=== PATIENT | male | born 1975 | race Caucasian/White ===

== ENCOUNTER → 2022-04-25 | Outpatient (REF) | payer BC ==
[2022-04-25 13:07] LABS: URIC ACID 7.3 MG/DL (3.7-9.2)
[2022-04-25 13:10] LABS: CHOLESTEROL RISK RATIO 4.86 (<5); HDL CHOLESTEROL 40.3 MG/DL (>40); LDL CHOLESTEROL 117.5 MG/DL (<100)
== END ==
LOC: M LAB REF 12:20
PROVIDERS: ATTEND Nurse Practitioner Family
DX: M10.9 Gout, unspecified (principal); R79.89 Other specified abnormal findings of blood chemistry; R94.7 Abnormal results of other endocrine function studies

== ENCOUNTER → 2022-11-04 | Outpatient (CLI) | payer BC | LOC: M RAD 15:40 | PROVIDERS: ATTEND Family Medicine Addiction Medicine | DX: R07.9 Chest pain, unspecified (principal) ==

== ENCOUNTER → 2023-03-10 | Outpatient (REF) | payer BC ==
[2023-03-12 15:07] LABS: PSA TOTAL 0.8 ng/mL (0.0-4.0)
== END ==
LOC: M LAB REF 12:34
PROVIDERS: ATTEND Family Medicine Addiction Medicine
DX: R39.12 Poor urinary stream (principal)

== ENCOUNTER 2023-05-26 10:54 | Day surgery (SDC) | payer BC ==
[~2023-05-26] VITALS: Ht 172.7 cm; Wt 115.2 kg
[~2023-05-26 10:54] MED LIST: CIAL10TA PO; NS 1,000 ML IV ONE
[2023-05-26] MEDS ORDERED: propofoL 200 MG/20 ML VIAL As Ordered ONE (11:40)
[2023-05-26] MEDS ORDERED: LIDOCAINE 2% 100MG/5ML SDV (FOR ANES.) As Ordered ONE (11:40)
[2023-05-26 13:11] VITALS: TEMP 97.4
[2023-05-26 13:30] VITALS: BP 140/98; O2SAT 100
== END 2023-05-26 13:35 | disposition home or self-care (01) ==
LOC: M OPP 10:54
PROVIDERS: ATTEND Surgery
DX: Z86.010 Personal history of colon polyps (principal); D12.0 Benign neoplasm of cecum; K57.30 Diverticulosis of large intestine without perforation or abscess without bleeding; K64.4 Residual hemorrhoidal skin tags; K64.8 Other hemorrhoids; Z79.899 Other long term (current) drug therapy

== ENCOUNTER → 2023-09-07 | Outpatient (REF) | payer BC ==
[~2023-09-07] MED LIST changes: -NS 1,000 ML IV ONE
[2023-09-07 14:34] LABS: ALKALINE PHOSPHATASE 78 U/L (46-116); ALT/SGPT 28 U/L (7.0-40); AST/SGOT 19 U/L (<34); BILIRUBIN,TOTAL 0.6 MG/DL (0.3-1.2); BLOOD UREA NITROGEN 23 MG/DL (9-23); CALCIUM LEVEL 9.4 MG/DL (8.5-10.1); CARBON DIOXIDE LEVEL 26 MMOL/L (20-31); CHLORIDE LEVEL 103 MMOL/L (98-107); CHOLESTEROL LEVEL 229 MG/DL (<200); CHOLESTEROL RISK RATIO 7.31 (<5); CREATININE FOR GFR 1.14 MG/DL (0.70-1.30); GLOMERULAR FILTRATION RATE > 60.0 (>60); GLUCOSE, FASTING 78 MG/DL (60-100); HDL CHOLESTEROL 31.3 MG/DL (>40); LDL CHOLESTEROL 161.5 MG/DL (<100); NON-HDL-C 197.7 MG/DL; POTASSIUM SERUM 4.9 MMOL/L (3.5-5.1); SODIUM LEVEL 138 MMOL/L (136-145); THYROID STIMULATING HORMONE 2.247 uIU/ML (0.55-4.78); TOTAL PROTEIN 6.9 G/DL (5.7-8.2); TRIGLYCERIDES LEVEL 181 MG/DL (<150)
== END ==
LOC: M LAB REF 11:55
PROVIDERS: ATTEND Family Medicine Addiction Medicine
DX: I10 Essential (primary) hypertension (principal)

== ENCOUNTER 2023-11-10 19:07 | Inpatient (IN) | payer BC ==
[~2023-11-10] VITALS: Ht 175.3 cm; Wt 116.7 kg
[2023-11-10] MEDS ORDERED: AMLO1TAB24 PO (19:59)
[2023-11-10 20:32] LABS: BASO # 0.1 10^3/uL (0.0-0.2); BASO % 0.4 % (0.0-1.0); EOS % 0.2 % (0.0-3.0); HEMOGLOBIN 19.5 g/dl (13.5-17.5); LYMPH % 7.2 % (24.0-44.0); MEAN CORPUSCULAR HEMOGLOBIN 29.5 pg (27.0-33.0); MEAN CORPUSCULAR HGB CONC 35.5 g/dl (32.0-36.5); MEAN CORPUSCULAR VOLUME 83.3 fl (80.0-96.0); NEUTROPHILS # 11.7 10^3/uL (1.5-8.5); NEUTROPHILS % 84.8 % (36.0-66.0); PLATELET COUNT, AUTOMATED 246 10^3/uL (150-450); WHITE BLOOD COUNT 13.8 10^3/uL (4.0-10.0)
[2023-11-10 21:07] LABS: LIPASE 24 U/L (12-53)
[2023-11-10 21:09] LABS: ALBUMIN 4.3 G/DL (3.2-5.2); ALKALINE PHOSPHATASE 74 U/L (46-116); ALT/SGPT 24 U/L (7.0-40); AST/SGOT 15 U/L (<34); BILIRUBIN,DIRECT 0.3 MG/DL (<0.4); BILIRUBIN,TOTAL 1.3 MG/DL (0.3-1.2); BLOOD UREA NITROGEN 23 MG/DL (9-23); CALCIUM LEVEL 9.7 MG/DL (8.5-10.1); CARBON DIOXIDE LEVEL 25 MMOL/L (20-31); CHLORIDE LEVEL 102 MMOL/L (98-107); CREATININE FOR GFR 1.23 MG/DL (0.70-1.30); GLOMERULAR FILTRATION RATE > 60.0 (>60); GLUCOSE, FASTING 140 MG/DL (60-100); SODIUM LEVEL 138 MMOL/L (136-145); TOTAL PROTEIN 7.7 G/DL (5.7-8.2)
[2023-11-11] MEDS: ONDANSETRON 4MG 2ML VIAL IV ONE (01:19)
[2023-11-11] MEDS: KETOROLAC 30 MG/ML 1ML VIAL IV ONE (01:20)
[2023-11-11] MEDS: NS 1,000 ML IV ONE ×2 (01:22→03:15)
[2023-11-11] MEDS ORDERED: ISOVUE-370 76% 100ML VIAL As Ordered ONE (01:26)
[2023-11-11] MEDS: KCL 20MEQ in NS 1000ML 1,000 ML IV SCH (04:16)
[2023-11-11] MEDS ORDERED: CLOB0.057 TOP (05:44)
[2023-11-11] MEDS ORDERED: ALBU8.5H INH (05:44)
[2023-11-11] MEDS ORDERED: TADA10TA PO (05:44)
[2023-11-11] MEDS ORDERED: HOME MED LIST COMPLETE! XX SCH (05:45)
[2023-11-11 06:06] VITALS: BP 148/92
[2023-11-11 07:31] VITALS: BP 146/80; TEMP 98.8
[2023-11-11 09:32] LABS: HEMATOCRIT 49.4 % (42.0-52.0); MEAN CORPUSCULAR HEMOGLOBIN 30.1 pg (27.0-33.0); MEAN CORPUSCULAR HGB CONC 34.6 g/dl (32.0-36.5); PLATELET COUNT, AUTOMATED 227 10^3/uL (150-450); RED BLOOD COUNT 5.68 10^6/uL (4.30-6.10); WHITE BLOOD COUNT 10.1 10^3/uL (4.0-10.0)
[2023-11-11 09:33] LABS: HEMOGLOBIN 17.1 g/dl (13.5-17.5)
[2023-11-11] MEDS: PANTOPRAZOLE 40MG VIAL IV SCH (10:01)
[2023-11-11] MEDS: ENOXAPARIN 40MG/0.4ML SYRINGE (J1650 PER 10MG) SC SCH (10:02)
[2023-11-11 11:48] VITALS: BP 140/80; TEMP 98.2; O2SAT 93
[2023-11-11] MEDS: CHLORASEPTIC SPRAY MT PRN (11:49)
[2023-11-11] MEDS: KETOROLAC 30 MG/ML 1ML VIAL IV PRN (12:27)
[2023-11-11 15:55] VITALS: BP 142/88; TEMP 98.2; O2SAT 92
[2023-11-11] MEDS: CEPACOL LOZENGE PO PRN (16:33)
[2023-11-11 20:00] VITALS: BP 158/84; TEMP 98.1; O2SAT 94
[2023-11-12] VITALS: BP 138/82; TEMP 98.1; O2SAT 96
[2023-11-12] MEDS: KETOROLAC 30 MG/ML 1ML VIAL IV PRN (02:42)
[2023-11-12 04:00] VITALS: BP 144/78; TEMP 98.2; O2SAT 95
[2023-11-12 07:03] LABS: HEMATOCRIT 45.7 % (42.0-52.0); HEMOGLOBIN 15.4 g/dl (13.5-17.5); MEAN CORPUSCULAR HEMOGLOBIN 30.3 pg (27.0-33.0); MEAN CORPUSCULAR HGB CONC 33.7 g/dl (32.0-36.5); MEAN CORPUSCULAR VOLUME 89.8 fl (80.0-96.0); PLATELET COUNT, AUTOMATED 178 10^3/uL (150-450); RED BLOOD COUNT 5.09 10^6/uL (4.30-6.10); WHITE BLOOD COUNT 8.9 10^3/uL (4.0-10.0)
[2023-11-12 07:42] LABS: BLOOD UREA NITROGEN 22 MG/DL (9-23); CALCIUM LEVEL 8.2 MG/DL (8.5-10.1); CARBON DIOXIDE LEVEL 28 MMOL/L (20-31); CHLORIDE LEVEL 111 MMOL/L (98-107); GLOMERULAR FILTRATION RATE > 60.0 (>60); GLUCOSE, FASTING 96 MG/DL (60-100); MAGNESIUM LEVEL 2.1 MG/DL (1.8-2.4); POTASSIUM SERUM 4.4 MMOL/L (3.5-5.1); SODIUM LEVEL 143 MMOL/L (136-145)
[2023-11-12 07:50] VITALS: BP 152/92; TEMP 98.6; O2SAT 93
[2023-11-12 11:45] VITALS: BP 138/92; TEMP 98.8; O2SAT 93
[2023-11-12 16:22] VITALS: BP 150/92; TEMP 98.8; O2SAT 94
[2023-11-12] MEDS: ONDANSETRON 4MG 2ML VIAL IV PRN (19:52)
[2023-11-12 20:19] VITALS: BP 152/92; TEMP 99; O2SAT 92
[2023-11-12] MEDS: MAALOX 30 ML SUSP *UDC PO ONE (23:11)
[2023-11-13] VITALS: BP 148/94; TEMP 98.4; O2SAT 97
[2023-11-13 03:58] VITALS: BP 144/86; TEMP 98.6; O2SAT 93
[2023-11-13 08:00] VITALS: BP 150/90; TEMP 98.8; O2SAT 92
[2023-11-13 08:26] LABS: HEMATOCRIT 45.7 % (42.0-52.0); HEMOGLOBIN 15.2 g/dl (13.5-17.5); MEAN CORPUSCULAR HEMOGLOBIN 29.8 pg (27.0-33.0); MEAN CORPUSCULAR HGB CONC 33.3 g/dl (32.0-36.5); MEAN CORPUSCULAR VOLUME 89.6 fl (80.0-96.0); PLATELET COUNT, AUTOMATED 170 10^3/uL (150-450); WHITE BLOOD COUNT 6.7 10^3/uL (4.0-10.0)
[2023-11-13 08:49] LABS: BLOOD UREA NITROGEN 20 MG/DL (9-23); CALCIUM LEVEL 8.2 MG/DL (8.5-10.1); CARBON DIOXIDE LEVEL 27 MMOL/L (20-31); CHLORIDE LEVEL 111 MMOL/L (98-107); CREATININE FOR GFR 1.04 MG/DL (0.70-1.30); GLOMERULAR FILTRATION RATE > 60.0 (>60); GLUCOSE, FASTING 96 MG/DL (60-100); SODIUM LEVEL 144 MMOL/L (136-145)
[2023-11-13 12:00] VITALS: BP 150/80; TEMP 98.4; O2SAT 91
[2023-11-13] MEDS ORDERED: GASTROGRAFIN SOLUTION 30ML As Ordered ONE (12:24)
[2023-11-13 16:00] VITALS: BP 152/100; TEMP 98.6; O2SAT 92
[2023-11-13] MEDS: MORPHINE 4 MG/ML 1ML VIAL IV PRN (20:09)
[2023-11-13 20:50] VITALS: BP 150/98; TEMP 98.4; O2SAT 96
[2023-11-14 00:15] VITALS: BP 138/86; TEMP 99.1; O2SAT 100
[2023-11-14 04:00] VITALS: BP 168/102; TEMP 98.8; O2SAT 99
[2023-11-14 06:52] LABS: HEMATOCRIT 46.2 % (42.0-52.0); HEMOGLOBIN 15.6 g/dl (13.5-17.5); MEAN CORPUSCULAR HEMOGLOBIN 30.1 pg (27.0-33.0); MEAN CORPUSCULAR HGB CONC 33.8 g/dl (32.0-36.5); MEAN CORPUSCULAR VOLUME 89.2 fl (80.0-96.0); PLATELET COUNT, AUTOMATED 177 10^3/uL (150-450); RED BLOOD COUNT 5.18 10^6/uL (4.30-6.10); WHITE BLOOD COUNT 6.5 10^3/uL (4.0-10.0)
[2023-11-14 08:00] VITALS: BP 160/94; TEMP 98.8; O2SAT 94
[2023-11-14 12:00] VITALS: BP 146/92; TEMP 97.9; O2SAT 91
[2023-11-14 16:07] VITALS: BP 140/88; TEMP 98.1; O2SAT 94
[2023-11-14 19:51] VITALS: BP 146/86; TEMP 99.5; O2SAT 94
[2023-11-15] VITALS (8 sets, daily range): BP systolic 148–170; BP diastolic 86–120; TEMP 98.1; O2SAT 92–95
[2023-11-15] MEDS ORDERED: ACETAMINOPHEN 1000MG 100ML IV BAG As Ordered ONE (06:52)
[2023-11-15] MEDS ORDERED: propofoL 200 MG/20 ML VIAL As Ordered ONE (06:54)
[2023-11-15] MEDS ORDERED: SUGAMMADEX SODIUM 500 MG/5 ML VIAL (BRIDION) As Ordered ONE (06:54)
[2023-11-15] MEDS ORDERED: ONDANSETRON 4MG 2ML VIAL As Ordered ONE (06:54)
[2023-11-15] MEDS ORDERED: LIDOCAINE 2% 100MG/5ML SDV (FOR ANES.) As Ordered ONE (06:54)
[2023-11-15] MEDS ORDERED: ROCURONIUM BROMIDE 50MG/5ML VIAL As Ordered ONE (06:54)
[2023-11-16] VITALS: BP 142/82; TEMP 99.3; O2SAT 96
[2023-11-16 04:00] VITALS: BP 138/84; TEMP 99; O2SAT 94
[2023-11-16 07:31] LABS: BLOOD UREA NITROGEN 10 MG/DL (9-23); CALCIUM LEVEL 8.2 MG/DL (8.5-10.1); CARBON DIOXIDE LEVEL 27 MMOL/L (20-31); CHLORIDE LEVEL 109 MMOL/L (98-107); CREATININE FOR GFR 0.93 MG/DL (0.70-1.30); GLOMERULAR FILTRATION RATE > 60.0 (>60); GLUCOSE, FASTING 96 MG/DL (60-100); MAGNESIUM LEVEL 1.8 MG/DL (1.8-2.4); POTASSIUM SERUM 4.2 MMOL/L (3.5-5.1); SODIUM LEVEL 142 MMOL/L (136-145)
[2023-11-16 08:30] VITALS: BP 152/98; TEMP 97.7; O2SAT 97
[2023-11-16 09:28] VITALS: BP 152/98
[2023-11-16] MEDS: amLODIPine 5 MG TAB PO ONE (09:28)
[2023-11-16] MEDS: PANTOPRAZOLE 40MG TAB (PROTONIX) PO SCH (09:28)
== END 2023-11-16 10:56 | disposition home or self-care (01) | DRG 247 ==
LOC: M ED 19:07 → M ED INP 11-11 02:42 → M MSPAV 11-11 04:54
PROVIDERS: ADMIT Preventive Medicine Undersea and Hyperbaric Medicine; ATTEND Internal Medicine
PROC: B246ZZZ Ultrasonography of Right and Left Heart (ICD-10-PCS; principal; 2023-11-14)
DX: K56.51 Intestinal adhesions [bands], with partial obstruction (principal); I10 Essential (primary) hypertension; Z90.49 Acquired absence of other specified parts of digestive tract; E86.0 Dehydration; Z79.899 Other long term (current) drug therapy